=== PATIENT | female | born 1990 | race Caucasian/White ===

== ENCOUNTER 2024-06-03 17:31 | Emergency (ER) | payer MEDICAID, SELFPAY ==
[2024-06-03 17:31] VITALS: BMI 35.2
[2024-06-03 18:27] VITALS: BP 123/79; PULSE 77; RESP 19; TEMP 37.2; O2SAT 98
--- NOTE | 2024-06-03 18:53 | EDNOTE_ITS ---
Upper Extremity Injury RME/HPI General Chief Complaint: Hand/Wrist Problems Stated Complaint: CUT TO LEFT THUMB TODAY AT 1700 Time Seen by Provider: 06/03/24 17:37 Source: patient Arrival date/time: 06/03/24 17:31 33-year-old female presents emergency department complaining of laceration to the left thumb that occurred earlier today. Patient reports injury occurred while prepping dinner. Patient reports is up-to-date with tetanus vaccine with last tetanus shot given 2 years ago. Mode of arrival: ambulatory Limitations: no limitations Related Data Home Medications ?Medication ?Instructions ?Recorded ?Confirmed metformin 500 mg tablet 500 mg PO QAM 10/15/20 01/05/22 metoprolol succinate 25 mg 25 mg PO QDAY 10/15/20 01/06/22 tablet,extended release 24 hr omeprazole 20 mg capsule,delayed 20 mg PO QDAY 10/15/20 01/05/22 release sertraline 50 mg tablet 50 mg PO QDAY 10/15/20 01/05/22 cetirizine 10 mg tablet 10 mg PO QDAY 09/13/21 01/05/22 metformin 500 mg tablet 250 mg PO HS 09/13/21 01/05/22 Previous Rx's ?Medication ?Instructions ?Recorded diphenhydramine HCl 25 mg capsule 25 mg PO Q8H PRN allergic symptoms 11/01/21 (Benadryl) #30 caps cyclobenzaprine 10 mg tablet 10 mg PO TID #14 tabs 05/17/23 cyclobenzaprine 10 mg tablet 10 mg PO TID PRN muscle spasm #30 10/29/23 tabs ondansetron 4 mg disintegrating 4 mg PO Q8H PRN nausea and 11/25/23 tablet vomiting #30 tabs Allergies Allergy/AdvReac Type Severity Reaction Status Date / Time morphine AdvReac Severe HEARTBURN, Verified 06/03/24 17:33 CHEST PAIN Review of Systems Review of Systems Systems Reviewed: All systems reviewed, normal except as documented Constitutional Constitutional: Reports system reviewed and no additional complaints, except as documented, Denies body ache(s), Denies chills and Denies fever(s) Eyes Eyes: Reports system reviewed and no additional complaints, except as documented and Denies change in vision ENT Ears, Nose, Mouth, and Throat: Reports system reviewed and no additional complaints, except as documented, Denies disequilibrium, Denies dizziness, Denies sore throat and Denies vertigo Cardiovascular Cardiovascular: Reports system reviewed and no additional complaints, except as documented, Denies chest pain and Denies dyspnea Respiratory Respiratory: Reports system reviewed and no additional complaints, except as documented, Denies chest congestion, Denies cough and Denies dyspnea Gastrointestinal Gastrointestinal: Reports system reviewed and no additional complaints, except as documented, Denies abdominal pain, Denies nausea and Denies vomiting Musculoskeletal Musculoskeletal: Reports system reviewed and no additional complaints, except as documented, Denies abnormal gait and Denies arthralgias Integumentary/Breasts Skin/Breast: Reports system reviewed and no additional complaints, except as documented, Denies erythema, Denies rash and Reports wounds Neurologic Neurologic: Reports system reviewed and no additional complaints, except as documented, Denies abnormal gait, Denies disequilibrium, Denies dizziness and Denies vertigo Past Medical History Past Medical History NEUROLOGIC: Negative Neurological Disorders, Cerebrovascular Accident, Transient Ischemic Attacks (TIA), Dementia, Parkinson's Disease, Brain Tumor, Meningitis, Seizures, Epilepsy, Multiple Sclerosis, Cerebral Palsy, Amyotrophic Lateral Sclerosis (ALS/Ofelia Gehrig's), Guillain-Holladay Syndrome, Spina Bifida, Paralysis, Peripheral Neuropathy, Thomas's Palsy, Subdural Hematoma, Migraine, Head Trauma, Spinal Cord Injury or Traumatic Brain Injury CARDIAC: Positive Atrial Fibrillation and Hypertension; Negative Cardiac Disorders, Myocardial Infarction, Cardiac Arrhythmia, Angina, Heart Murmur, Coronary Artery Disease, Atherosclerotic Heart Disease, Peripheral Vascular Disease, Hypercholesterolemia, Aneurysm, Congestive Heart Failure, Congenital Heart Disease, Rheumatic Fever, Cardiomyopathy, Edema, Pericarditis, Cellulitis, Deep Vein Thrombosis, Hypotension or Varicose Veins RESPIRATORY: Positive Sleep Apnea; Negative Chronic Obstructive Pulmonary Disease (COPD), Asthma, Bronchitis, Emphysema, Pneumonia, Pulmonary Fibrosis, Cystic Fibrosis, Tuberculosis, Pulmonary Embolism or Pulmonary Edema GASTROINTESTINAL: Positive Gastrointestinal Disorders and Gastroesophageal Reflux Disease; Negative Hepatitis or Colorectal Cancer GENITOURINARY: Negative Genitourinary Disorders, Renal Disease, Kidney Stones, Polycystic Kidney Disease, Neurogenic Bladder, Inguinal Hernia, Dialysis, Prostate Cancer or Benign Prostatic Hyperplasia REPRODUCTIVE: Positive Previous Pregnancies; Negative Breast Cancer, Endometriosis, Genital Herpes, Gonorrhea, Pelvic Inflammatory Disease, Syphilis, Testicular Cancer or Uterine Prolapse MUSCULOSKELETAL: Negative Musculoskeletal Disorders, Muscular Dystrophy, Myasthenia Gravis, Marfan's Syndrome, Bone Cancer, Arthritis, Rheumatoid Arthritis, Osteoporosis, Degenerative Disk Disease, Gout, Scoliosis, Carpal Tunnel Syndrome, Fibromyalgia, Fractures, Degenerative Joint Disease, Osteomyelitis or Poliovirus ENT: Negative Cataracts, Glaucoma, Blind, Macular Degeneration, Ear Infection, Deafness, Head Trauma or Eye Prosthesis ENDOCRINE: Positive Endocrine Disorders and Diabetes Mellitus Type 2; Negative Diabetes Mellitus Type 1, Hypoglycemia, [place] Gorge's Syndrome, Ish's Disease, Hyperthyroidism, Hypothyroidism, Parathyroid Disease, Pituitary Disease, Systemic Lupus Erythematosus, Syndrome of Inappropriate Antidiuretic Hormone (SIADH), Adrenal Disease or Graves' Disease HEMATOLOGIC: Negative Blood Disorders, Anemia, Leukemia, Hemophilia, Sickle Cell Disease or Clotting Problems PSYCHO/SOCIAL: Positive Depression and Anxiety; Negative Psychiatric Problems, Schizophrenia, Recreational Drug Use, Bipolar Disorder, Behavior Problems, Self-Mutilation, Attention Deficit Disorder, Attention Deficit Hyperactivity Disorder, Depression, Post Traumatic Stress Disorder or Eating Disorder OTHER HISTORY: Negative Hospitalization, Autoimmune Disease, Down Syndrome, Autism, Developmental Delay, Shingles, Falls, Blood Transfusions, Anesthesia Reactions, Organ Transplant, Chemotherapy, Radiation Therapy, Hyperbaric Therapy, MRSA, VRSA, Vancomycin-Resistant Enterococci, Human Immunodeficiency Virus (HIV), Chicken Pox, Measles, Mumps, Rubella (Gibraltarian Measles), Pertussis, Clostridium Difficile, Breast Cancer, Cervical Cancer, Colorectal Cancer, Lung Cancer, Ovarian Cancer, Prostate Cancer or Testicular Cancer Family History FAMILY HISTORY: Positive Family Cardiac Disorders; Negative Family Psychiatric Problems, Family Respiratory Disorders, Family Gastrointestinal Problems, Family Cancer, Family Surgery or Family Anesthesia Reaction Surgical History SURGICAL: Positive Tonsillectomy; Negative Cardiac Surgery, Open Heart Surgery, Coronary Artery Bypass Graft, Valve Replacement, Vascular Surgery, Coronary Stent, Cardiac Catheterization, Pacemaker, Angiogram, Auto Implanted Cardiovert Defib, Carotid Endarterectomy, Endocrine Surgery, Ear Surgery, Tympanostomy Tube, Eye Surgery, Nose Surgery, Oral Surgery, Adenoidectomy, Cochlear Implant, Corneal Transplant, Throat Surgery, Abdominal Surgery, Tracheostomy, Gastric Bypass Surgery, Gastrostomy, Bowel Surgery, Nephrectomy, Transurethral Resection, Joint Replacement, Amputation, Open Reduction Internal Fixation, Arthroscopy, Neurologic Surgery, Brain Shunt, Mastectomy, Lumpectomy, Hysterectomy, Tubal Ligation, Section, Vasectomy or Organ Transplant Social History SMOKING STATUS: Heavy (> 1 pack/day) SUBSTANCE USE: does not use ED Exam General Limitations: Present no limitations General appearance: Present alert and in no apparent distress Head Head exam: Present atraumatic Eye Eye exam: Present normal appearance, PERRL and EOMI ENT ENT exam: Present normal exam, normal oropharynx and mucous membranes moist Neck Neck exam: Present normal inspection, full ROM and trachea midline Chest Chest inspection: Present normal inspection and symmetric chest wall rise Respiratory Respiratory exam: Present normal lung sounds bilaterally Cardiovascular Cardiovascular exam: Present regular rate, normal rhythm and normal heart sounds Abdominal Exam Abdominal exam: Present soft and normal bowel sounds Extremities Exam Extremities exam: Present normal inspection and full ROM Expanded Upper Extremity Exam Hand L/R back image: 2 1. 1 cm laceration superficial no active bleeding no suture required approximated with Dermabond Back Exam Back exam: Present normal inspection and full ROM Neurological Exam Neurological exam: Present alert, oriented X3 and CN II-XII intact Psychiatric Psychiatric exam: Present normal affect and normal mood Skin Skin exam: Present warm, dry, intact and normal color Course Quality Measures none Vital Signs Vital signs: Vital Signs Temperature 98.9 F 06/03/24 18:27 Pulse Rate 77 06/03/24 18:27 Respiratory Rate 19 06/03/24 18:27 Blood Pressure 123/79 06/03/24 18:27 Pulse Oximetry (%) 98 06/03/24 18:27 Oxygen Delivery Method Room Air 06/03/24 18:27 98% room air within normal limits Extremity Injury MDM Narrative MDM Narrative:: 33-year-old female presents emergency department complaining of laceration to the left thumb that occurred earlier today. Patient reports injury occurred while prepping dinner. Patient reports is up-to-date with tetanus vaccine with last tetanus shot given 2 years ago. With normal saline. 1 cm laceration left thumb superficial no active bleeding does not require suture placed Dermabond for approximation. Affected thumb neurovascularly intact with full active range of motion. Patient data External records reviewed:: [facility] previous records Clinical information provided by:: patient Social determinants that could affect healthcare access:: none Patient has the following chronic illnesses:: See chart How is presenting disease/condition affected by chronic disease/condition?: u neffected by Evaluation data The following diagnostics were reviewed and interpreted by me:: other (specify) (None) Lab and/or radiology exams considered but not ordered:: None Interpretation Summary: None Medications / Prescriptions Medications or Prescriptions considered but not ordered:: None Medication administrations:: None Consultations Consultation(s) initiated? (list below): No Diagnosis Upper Extremity Injury Differential Diagnosis: finger sprain Most likely diagnosis given after review of the tests above:: Laceration of left thumb Admission Indicated Admission indicated?: not indicated Admission Request Was there a request for admission?: No Disposition Plan Disposition Plan: Discharge Discharge Attestation Discharge Attestation: The patient and all family members were given an opportunity to ask questions and understood the discharge instructions. Discharge instructions specifically effects, indications for sooner follow up or return to the emergency department, and the expected course of current diagnosis. Patient condition: Stable Discharge Plan Plan Patient Disposition: HOME (Self Care) Disposition Comment: Stable Prescriptions/Referrals Prescriptions/Med Rec: No Action metformin 500 mg Tablet 250 mg PO HS cetirizine 10 mg tablet 10 mg PO QDAY Patient Comments: TAKE 1 TABLET BY MOUTH EVERY DAY metformin 500 mg tablet 500 mg PO QAM Patient Comments: TAKE 1 TABLET BY MOUTH EVERY DAY WITH A MEAL omeprazole 20 mg capsule,delayed release(DR/EC) 20 mg PO QDAY Patient Comments: TAKE 1 CAPSULE BY MOUTH ONCE EVERY MORNING DAILY 30 MINUTES BEFORE FOR 30N DAYS metoprolol succinate 25 mg tablet extended release 24 hr 25 mg PO QDAY sertraline 50 mg tablet 50 mg PO QDAY Patient Comments: TAKE 1 TABLET BY MOUTH EVERY DAY diphenhydramine HCl [Benadryl] 25 mg capsule 25 mg PO Q8H PRN (Reason: allergic symptoms) Qty: 30 0RF Hold Instructions: Resume on 01/07/22. cyclobenzaprine 10 mg tablet 10 mg PO TID Qty: 14 0RF cyclobenzaprine 10 mg tablet 10 mg PO TID PRN (Reason: muscle spasm) Qty: 30 0RF ondansetron 4 mg tablet,disintegrating 4 mg PO Q8H PRN (Reason: nausea and vomiting) Qty: 30 0RF Referrals: Stephan Eden MD [Primary Care Provider] - In 1 week Problem List Clinical Impression: Laceration of left thumb Patient/Caregiver Discharge Instructions Discharge Activity: activity as tolerated Education Materials: ED Laceration, Extremity: Skin Glue Additional Instructions: Monitor for any signs of infection. Keep laceration clean dry and intact. Follow-up with primary care provider within 1 week. Return to emergency department for any worsening symptoms or as needed. Print Language: Cuban Stand Alone Forms: Gema Award Info., Patient Portal Info Letter PA/[facility] Supervising Physician [facility] Supervising Physician: Dr. Feldman
== END 2024-06-03 19:23 | disposition home or self-care (01) ==
PROVIDERS: Emergency Provider Emergency Medicine; PCP Family Medicine
DX: S61.012A Laceration without foreign body of left thumb without damage to nail, initial encounter (principal); W45.8XXA Other foreign body or object entering through skin, initial encounter
CPT/HCPCS: 12001; 99283

== ENCOUNTER 2024-06-05 07:22 | Emergency (ER) | payer MEDICAID, SELFPAY ==
[2024-06-05 07:31] VITALS: BP 128/82; PULSE 93; RESP 18; TEMP 36.4; O2SAT 100; BMI 35.2
--- NOTE | 2024-06-05 07:38 | PD.EDRME ---
Rapid Medical Screening Exam RME Arrival date/time: 06/05/24 07:22 33-year-old female presents emergency department today complains of nausea vomiting and abdominal pain which began 2 hours ago Chief Complaint: Nausea/Vomiting/Diarrhea Time Seen by Provider: 06/05/24 07:25 Vital signs: Vital Signs Temperature 97.6 F 06/05/24 07:31 Pulse Rate 93 06/05/24 07:31 Respiratory Rate 18 06/05/24 07:31 Blood Pressure 128/82 06/05/24 07:31 Pulse Oximetry (%) 100 06/05/24 07:31 Oxygen Delivery Method Room Air 06/05/24 07:31
[2024-06-05] MEDS: METOCLOPRAMIDE INJ 5 MG/ML VIAL 2 ML 10 MG IM (07:46)
[2024-06-05] MEDS: ONDANSETRON ODT 4 MG TABRAP PO (07:46)
[2024-06-05 08:09] LABS: Collection Type, Urine Clean Catch
[2024-06-05 08:31] LABS: Bacteria,Urine Rare; Bilirubin,Urine Negative (Negative); Blood,Urine Trace (Negative); Clarity,Urine Turbid (Clear/Hazy); Color,Urine Yellow (Lt Yel-Yel); Culture Indicated,Urine Contaminated; Glucose, Urine Negative (Negative); Ketones,Urine Trace (Negative); Leukocyte Esterase,Urine Positive (Negative); Nitrite,Urine Negative (Negative); PH,Urine 5.5 (5.0-7.0); Protein,Urine 1+ (Neg - Trace); RBC,Urine 11 /hpf (0-3); Specific Gravity,Urine 1.032 (1.001-1.035); Squamous Epithelial Cell,Urine 25 /hpf (0-5); Urobilinogen,Urine Negative mg/dL (0.0-1.0); WBC,Urine 42 /hpf (0-5)
[2024-06-05 08:42] LABS: Amphetamine/Methamp Scrn,U Negative (Negative); Barbiturate Screen,Urine Negative (Negative); Benzodiazepines Screen,Urine Negative (Negative); Benzoylecgonine Screen, Ur Negative (Negative); Fentanyl Screen,Urine Negative (Negative); Opiate Screen,Urine Negative (Negative); THC Screen,Urine Positive (Negative)
--- NOTE | 2024-06-05 09:55 | EDNOTE_ITS ---
Nausea/Vomit./Diarrhea-RME/HPI General Chief complaint: Nausea/Vomiting/Diarrhea Stated complaint: nausea/vomiting/diarrhea since 0500 today Time Seen by Provider: 06/05/24 07:25 Arrival date/time: 06/05/24 07:22 33-year-old female presents emergency department today complains of nausea vomiting and abdominal pain which began 2 hours ago patient reports he is taking Trulicity 2 days ago and believes it may be the cause of her symptoms Limitations: no limitations RME / HPI RME / HPI Narrative: 06/05/24 07:22 33-year-old female presents emergency department today complains of nausea vomiting and abdominal pain which began 2 hours ago Related Data Home Medications ?Medication ?Instructions ?Recorded ?Confirmed metformin 500 mg tablet 500 mg PO QAM 10/15/20 01/05/22 metoprolol succinate 25 mg 25 mg PO QDAY 10/15/20 01/06/22 tablet,extended release 24 hr omeprazole 20 mg capsule,delayed 20 mg PO QDAY 10/15/20 01/05/22 release sertraline 50 mg tablet 50 mg PO QDAY 10/15/20 01/05/22 cetirizine 10 mg tablet 10 mg PO QDAY 09/13/21 01/05/22 metformin 500 mg tablet 250 mg PO HS 09/13/21 01/05/22 Previous Rx's ?Medication ?Instructions ?Recorded diphenhydramine HCl 25 mg capsule 25 mg PO Q8H PRN allergic symptoms 11/01/21 (Benadryl) #30 caps cyclobenzaprine 10 mg tablet 10 mg PO TID #14 tabs 05/17/23 cyclobenzaprine 10 mg tablet 10 mg PO TID PRN muscle spasm #30 10/29/23 tabs ondansetron 4 mg disintegrating 4 mg PO Q8H PRN nausea and 11/25/23 tablet vomiting #30 tabs ibuprofen 600 mg tablet 600 mg PO Q6H #30 tabs 06/05/24 loperamide 2 mg capsule (Imodium 2 mg PO Q6H PRN loose stool #14 06/05/24 A-D) caps metoclopramide HCl 10 mg tablet 10 mg PO Q6H PRN nausea and 06/05/24 (Reglan) vomiting #30 tabs Allergies Allergy/AdvReac Type Severity Reaction Status Date / Time morphine AdvReac Severe HEARTBURN, Verified 06/05/24 07:24 CHEST PAIN Review of Systems Review of Systems Systems Reviewed: All systems reviewed, normal except as documented Constitutional Constitutional: Reports system reviewed and no additional complaints, except as documented, Denies fever(s) and Denies headache(s) Eyes Eyes: Reports system reviewed and no additional complaints, except as documented and Denies blurry vision ENT Ears, Nose, Mouth, and Throat: Reports system reviewed and no additional complaints, except as documented, Denies headache(s), Denies nasal congestion and Denies nasal discharge Cardiovascular Cardiovascular: Reports system reviewed and no additional complaints, except as documented, Denies chest pain and Denies dyspnea Respiratory Respiratory: Reports system reviewed and no additional complaints, except as documented, Denies chest congestion, Denies cough and Denies dyspnea Gastrointestinal Gastrointestinal: Reports system reviewed and no additional complaints, except as documented, Reports abdominal pain, Reports loose stools and Reports vomiting Integumentary/Breasts Skin/Breast: Reports system reviewed and no additional complaints, except as documented and Denies rash Neurologic Neurologic: Reports system reviewed and no additional complaints, except as documented, Reports as per HPI and Denies headache(s) Past Medical History Past Medical History NEUROLOGIC: Negative Neurological Disorders CARDIAC: Negative Cardiac Disorders ED Exam General Limitations: Present no limitations General appearance: Present alert and in no apparent distress Head Head exam: Present atraumatic and normocephalic Eye Eye exam: Present normal appearance, PERRL and EOMI; Absent conjunctival inject ion ENT ENT exam: Present normal exam, normal oropharynx and mucous membranes moist Neck Neck exam: Present normal inspection, full ROM and trachea midline Chest Chest inspection: Present normal inspection and symmetric chest wall rise Respiratory Respiratory exam: Present normal lung sounds bilaterally; Absent respiratory distress Cardiovascular Cardiovascular exam: Present regular rate, normal rhythm and normal heart sounds Abdominal Exam Abdominal exam: Present soft and normal bowel sounds; Absent distention, tenderness, guarding, rebound, rigidity, Ramirez's sign or tenderness at McBurney's Point Abdominal tenderness: Absent RUQ or RLQ Extremities Exam Extremities exam: Present normal inspection and full ROM Back Exam Back exam: Present normal inspection and full ROM Neurological Exam Neurological exam: Present alert, oriented X3, CN II-XII intact, normal gait and reflexes normal; Absent motor sensory deficit Psychiatric Psychiatric exam: Present normal affect and normal mood Skin Skin exam: Present warm, dry, intact and normal color; Absent rash Course Quality Measures none Orders Category Date Time Status Bedside Influenza A&B Antigen Test NOW Care 06/05/24 07:38 Completed Drug Screen,Urine Stat Lab 06/05/24 07:56 Completed UA, C/S IF [Urinalysis, C/S if Indicated] Stat Lab 06/05/24 07:56 Completed Metoclopramide Inj [Reglan Inj] Med 06/05/24 07:37 Discontinued 10 mg IM X1 ONE Ondansetron Odt [Zofran Odt] Med 06/05/24 07:37 Discontinued 4 mg PO X1 ONE Vital Signs Vital signs: Vital Signs Temperature 97.6 F 06/05/24 07:31 Pulse Rate 93 06/05/24 07:31 Respiratory Rate 18 06/05/24 07:31 Blood Pressure 128/82 06/05/24 07:31 Pulse Oximetry (%) 100 06/05/24 07:31 Oxygen Delivery Method Room Air 06/05/24 07:31 O2 saturation 100% room air wnl Nausea/Vomiting/Diarrhea MDM Narrative MDM Narrative:: 33-year-old female presents emergency department today complains of nausea vomiting and abdominal pain which began 2 hours ago patient reports he is taking Trulicity 2 days ago and believes it may be the cause of her symptoms On exam patient does not appear ill or toxic patient does not appear in acute distress Patient given Reglan here in the emergency department patient reports her symptoms have completely resolved patient reports having 2 episodes of diarrhea here in the emergency department Lab work ordered there was delay over 2 hours for lab work patient reports that she feels better would like to go home lab work is canceled as she reports all symptoms have resolved I explained to the patient if she has any new symptoms or new concerns to return immediately for further evaluation Patient data External records reviewed:: [facility] previous records Clinical information provided by:: patient Social determinants that could affect healthcare access:: none Patient has the following chronic illnesses:: See history How is presenting disease/condition affected by chronic disease/condition?: caused by Evaluation data The following diagnostics were reviewed and interpreted by me:: other (specify) (N/A) Lab and/or radiology exams considered but not ordered:: Ordered Interpretation Summary: N/A Medications / Prescriptions Medications / Prescriptions considered but not ordered:: Given Medication administrations:: Medication Administration History Discontinued Medications Metoclopramide HCl (Metoclopramide Inj 5 Mg/Ml Vial 2 Ml) 10 mg IM X1 ONE; Protocol Stop: 06/05/24 07:38 Last Admin: 06/05/24 07:46 Dose: 10 mg Documented By: OSVALDO Ondansetron HCl (Ondansetron Odt 4 Mg Tabrap) 4 mg PO X1 ONE; Protocol Stop: 06/05/24 07:38 Last Admin: 06/05/24 07:46 Dose: 4 mg Documented By: OSVALDO Given Consultations Consultation(s) initiated? (list below): No Diagnosis Nausea Differential Diagnosis: traveler's diarrhea, food poisoning and dehydration Most likely diagnosis given after review of the tests above:: Diarrhea Admission Indicated Admission indicated?: not indicated Admission Request Was there a request for admission?: No Disposition Plan Disposition Plan: Discharge Discharge Attestation Discharge Attestation: The patient and all family members were given an opportunity to ask questions and understood the discharge instructions. Discharge instructions specifically effects, indications for sooner follow up or return to the emergency department, and the expected course of current diagnosis. Patient condition: Stable Discharge Plan Plan Patient Disposition: HOME (Self Care) Disposition Comment: Stable Prescriptions/Referrals Prescriptions/Med Rec: New loperamide [Imodium A-D] 2 mg capsule 2 mg PO Q6H PRN (Reason: loose stool) Qty: 14 0RF ibuprofen 600 mg tablet 600 mg PO Q6H Qty: 30 0RF metoclopramide HCl [Reglan] 10 mg tablet 10 mg PO Q6H PRN (Reason: nausea and vomiting) Qty: 30 0RF No Action metformin 500 mg Tablet 250 mg PO HS cetirizine 10 mg tablet 10 mg PO QDAY Patient Comments: TAKE 1 TABLET BY MOUTH EVERY DAY metformin 500 mg tablet 500 mg PO QAM Patient Comments: TAKE 1 TABLET BY MOUTH EVERY DAY WITH A MEAL omeprazole 20 mg capsule,delayed release(DR/EC) 20 mg PO QDAY Patient Comments: TAKE 1 CAPSULE BY MOUTH ONCE EVERY MORNING DAILY 30 MINUTES BEFORE FOR 30N DAYS metoprolol succinate 25 mg tablet extended release 24 hr 25 mg PO QDAY sertraline 50 mg tablet 50 mg PO QDAY Patient Comments: TAKE 1 TABLET BY MOUTH EVERY DAY diphenhydramine HCl [Benadryl] 25 mg capsule 25 mg PO Q8H PRN (Reason: allergic symptoms) Qty: 30 0RF Hold Instructions: Resume on 01/07/22. cyclobenzaprine 10 mg tablet 10 mg PO TID Qty: 14 0RF cyclobenzaprine 10 mg tablet 10 mg PO TID PRN (Reason: muscle spasm) Qty: 30 0RF ondansetron 4 mg tablet,disintegrating 4 mg PO Q8H PRN (Reason: nausea and vomiting) Qty: 30 0RF Referrals: Stephan Eden MD [Primary Care Provider] - In 1 week Problem List Clinical Impression: Nausea, vomiting and diarrhea Patient/Caregiver Discharge Instructions Education Materials: Treating Diarrhea Additional Instructions: Please follow up with your primary care doctor in the next 24-48hrs for any worsening symptoms return here immediately Print Language: Russian Stand Alone Forms: [employer] Award Info., Work/School Release, Patient Portal Info Letter PA/CLIENT SUCCESS DIRECTOR Supervising Physician PA/[facility] Supervising Physician: Dr lara
== END 2024-06-05 10:04 | disposition home or self-care (01) ==
PROVIDERS: Nurse Practitioner Primary Care; Emergency Provider Emergency Medicine; PCP Family Medicine
DX: R11.2 Nausea with vomiting, unspecified (principal); R19.7 Diarrhea, unspecified
CPT/HCPCS: 80053; 80307; 81001; 83036; 83690; 84703; 85025; 87400; 96372; 99283; J2765; Q0162

== ENCOUNTER 2024-06-05 22:52 | Emergency (ER) | payer MEDICAID, SELFPAY ==
[2024-06-05 23:26] VITALS: BP 122/86; PULSE 89; RESP 18; TEMP 36.9; O2SAT 99; BMI 35.2
--- NOTE | 2024-06-05 23:31 | EDNOTE_ITS ---
ED Abdominal Pain RME/HPI General Chief Complaint: Abdominal Pain Stated complaint: abdominal pain/here earlier worsening pain Time seen by provider: 06/05/24 23:33 Arrival date/time: 06/05/24 22:52 33-year-old female with a history of type 2 diabetes, hypertension presents to the emergency room with a chief complaint of epigastric abdominal pain nausea and diarrhea x 2 days. Patient states her symptoms have began after starting the medication Trulicity 2 days ago. Source: patient Mode of arrival: ambulatory Limitations: no limitations Related Data Home Medications ?Medication ?Instructions ?Recorded ?Confirmed metformin 500 mg tablet 500 mg PO QAM 10/15/20 01/05/22 metoprolol succinate 25 mg 25 mg PO QDAY 10/15/20 01/06/22 tablet,extended release 24 hr omeprazole 20 mg capsule,delayed 20 mg PO QDAY 10/15/20 01/05/22 release sertraline 50 mg tablet 50 mg PO QDAY 10/15/20 01/05/22 cetirizine 10 mg tablet 10 mg PO QDAY 09/13/21 01/05/22 metformin 500 mg tablet 250 mg PO HS 09/13/21 01/05/22 Previous Rx's ?Medication ?Instructions ?Recorded diphenhydramine HCl 25 mg capsule 25 mg PO Q8H PRN allergic symptoms 11/01/21 (Benadryl) #30 caps cyclobenzaprine 10 mg tablet 10 mg PO TID #14 tabs 05/17/23 cyclobenzaprine 10 mg tablet 10 mg PO TID PRN muscle spasm #30 10/29/23 tabs ondansetron 4 mg disintegrating 4 mg PO Q8H PRN nausea and 11/25/23 tablet vomiting #30 tabs ibuprofen 600 mg tablet 600 mg PO Q6H #30 tabs 06/05/24 loperamide 2 mg capsule (Imodium 2 mg PO Q6H PRN loose stool #14 06/05/24 A-D) caps metoclopramide HCl 10 mg tablet 10 mg PO Q6H PRN nausea and 06/05/24 (Reglan) vomiting #30 tabs nitrofurantoin 100 mg PO Q12H 5 days #10 caps 06/06/24 monohydrate/macrocrystals 100 mg capsule (Macrobid) Allergies Allergy/AdvReac Type Severity Reaction Status Date / Time morphine AdvReac Severe HEARTBURN, Verified 06/05/24 07:24 CHEST PAIN Review of Systems Review of Systems Systems Reviewed: All systems reviewed, normal except as documented Constitutional Constitutional: Reports system reviewed and no additional complaints, except as documented, Denies fatigue, Denies fever(s), Denies headache(s) and Denies weakness Eyes Eyes: Reports system reviewed and no additional complaints, except as documented, Denies blurry vision and Denies change in vision ENT Ears, Nose, Mouth, and Throat: Reports system reviewed and no additional complaints, except as documented, Denies otalgia, Denies headache(s), Denies nasal congestion, Denies throat swelling and Denies vertigo Cardiovascular Cardiovascular: Reports system reviewed and no additional complaints, except as documented, Denies chest pain, Denies dyspnea and Denies dyspnea on exertion Respiratory Respiratory: Reports system reviewed and no additional complaints, except as documented, Denies chest congestion, Denies cough, Denies dyspnea, Denies dyspnea on exertion and Denies wheezing Gastrointestinal Gastrointestinal: Reports system reviewed and no additional complaints, except as documented, Reports abdominal pain, Reports cramping, Reports nausea and Reports vomiting Genitourinary Genitourinary: Reports system reviewed and no additional complaints, except as documented Musculoskeletal Musculoskeletal: Reports system reviewed and no additional complaints, except as documented and Denies back pain Integumentary/Breasts Skin/Breast: Reports system reviewed and no additional complaints, except as documented and Denies wounds Neurologic Neurologic: Reports system reviewed and no additional complaints, except as documented, Denies confusion, Denies headache(s), Denies lack of coordination, Denies vertigo and Denies weakness Psychiatric Psychiatric: Reports system reviewed and no additional complaints, except as documented, Denies anxiety, Denies confusion, Denies depression, Denies paranoia, Denies suicidal ideation and Denies tactile hallucinations Endocrine Endocrine: Reports system reviewed and no additional complaints, except as documented and Denies fatigue Hematologic/Lymphatic Hematologic/Lymphatic: Reports system reviewed and no additional complaints, except as documented and Denies lymphadenopathy Allergic/Immunologic Allergic/Immunologic: Reports system reviewed and no additional complaints, except as documented, Denies throat swelling, Denies urticaria and Denies w heezing Past Medical History Past Medical History NEUROLOGIC: Negative Neurological Disorders, Cerebrovascular Accident, Transient Ischemic Attacks (TIA), Dementia, Parkinson's Disease, Brain Tumor, Meningitis, Seizures, Epilepsy, Multiple Sclerosis, Cerebral Palsy, Amyotrophic Lateral Sclerosis (ALS/Ofelia Gehrig's), Guillain-[place] Syndrome, Spina Bifida, Paralysis, Peripheral Neuropathy, Thomas's Palsy, Subdural Hematoma, Migraine, Head Trauma, Spinal Cord Injury or Traumatic Brain Injury CARDIAC: Positive Atrial Fibrillation and Hypertension; Negative Cardiac Disorders, Myocardial Infarction, Cardiac Arrhythmia, Angina, Heart Murmur, Coronary Artery Disease, Atherosclerotic Heart Disease, Peripheral Vascular Disease, Hypercholesterolemia, Aneurysm, Congestive Heart Failure, Congenital Heart Disease, Rheumatic Fever, Cardiomyopathy, Edema, Pericarditis, Cellulitis, Deep Vein Thrombosis, Hypotension or Varicose Veins RESPIRATORY: Positive Sleep Apnea; Negative Chronic Obstructive Pulmonary Disease (COPD), Asthma, Bronchitis, Emphysema, Pneumonia, Pulmonary Fibrosis, Cystic Fibrosis, Tuberculosis, Pulmonary Embolism or Pulmonary Edema GASTROINTESTINAL: Positive Gastrointestinal Disorders and Gastroesophageal Reflux Disease; Negative Hepatitis or Colorectal Cancer GENITOURINARY: Negative Genitourinary Disorders, Renal Disease, Kidney Stones, Polycystic Kidney Disease, Neurogenic Bladder, Inguinal Hernia, Dialysis, Prostate Cancer or Benign Prostatic Hyperplasia REPRODUCTIVE: Positive Previous Pregnancies; Negative Breast Cancer, Endometriosis, Genital Herpes, Gonorrhea, Pelvic Inflammatory Disease, Syphilis, Testicular Cancer or Uterine Prolapse MUSCULOSKELETAL: Negative Musculoskeletal Disorders, Muscular Dystrophy, Myas thenia Gravis, Marfan's Syndrome, Bone Cancer, Arthritis, Rheumatoid Arthritis, Osteoporosis, Degenerative Disk Disease, Gout, Scoliosis, Carpal Tunnel Syndrome, Fibromyalgia, Fractures, Degenerative Joint Disease, Osteomyelitis or Poliovirus ENT: Negative Cataracts, Glaucoma, Blind, Macular Degeneration, Ear Infection, Deafness, Head Trauma or Eye Prosthesis ENDOCRINE: Positive Endocrine Disorders and Diabetes Mellitus Type 2; Negative Diabetes Mellitus Type 1, Hypoglycemia, Juan David's Syndrome, [place]'s Disease, Hyperthyroidism, Hypothyroidism, Parathyroid Disease, Pituitary Disease, Systemic Lupus Erythematosus, Syndrome of Inappropriate Antidiuretic Hormone (SIADH), Adrenal Disease or Graves' Disease HEMATOLOGIC: Negative Blood Disorders, Anemia, Leukemia, Hemophilia, Sickle Cell Disease or Clotting Problems PSYCHO/SOCIAL: Positive Depression and Anxiety; Negative Psychiatric Problems, Schizophrenia, Recreational Drug Use, Bipolar Disorder, Behavior Problems, Self-Mutilation, Attention Deficit Disorder, Attention Deficit Hyperactivity Disorder, Depression, Post Traumatic Stress Disorder or Eating Disorder OTHER HISTORY: Negative Hospitalization, Autoimmune Disease, Down Syndrome, Autism, Developmental Delay, Shingles, Falls, Blood Transfusions, Anesthesia Reactions, Organ Transplant, Chemotherapy, Radiation Therapy, Hyperbaric Therapy, MRSA, VRSA, Vancomycin-Resistant Enterococci, Human Immunodeficiency Virus (HIV), Chicken Pox, Measles, Mumps, Rubella (Yor[place] Measles), Pertussis, Clostridium Difficile, Breast Cancer, Cervical Cancer, Colorectal Cancer, Lung Cancer, Ovarian Cancer, Prostate Cancer or Testicular Cancer Family History FAMILY HISTORY: Positive Family Cardiac Disorders; Negative Family Psychiatric Problems, Family Respiratory Disorders, Family Gastrointestinal Problems, Family Cancer, Family Surgery or Family Anesthesia Reaction Surgical History SURGICAL: Positive Tonsillectomy; Negative Cardiac Surgery, Open Heart Surgery, Coronary Artery Bypass Graft, Valve Replacement, Vascular Surgery, Coronary Stent, Cardiac Catheterization, Pacemaker, Angiogram, Auto Implanted Cardiovert Defib, Carotid Endarterectomy, Endocrine Surgery, Ear Surgery, Tympanostomy Tube, Eye Surgery, Nose Surgery, Oral Surgery, Adenoidectomy, Cochlear Implant, Corneal Transplant, Throat Surgery, Abdominal Surgery, Tracheostomy, Gastric Bypass Surgery, Gastrostomy, Bowel Surgery, Nephrectomy, Transurethral Resection, Joint Replacement, Amputation, Open Reduction Internal Fixation, Arthroscopy, Neurologic Surgery, Brain Shunt, Mastectomy, Lumpectomy, Hysterectomy, Tubal Ligation, Section, Vasectomy or Organ Transplant Social History SMOKING STATUS: Former smoker SUBSTANCE USE: does not use ED Exam General Limitations: Present no limitations General appearance: Present alert and in no apparent distress Head Head exam: Present atraumatic Eye Eye exam: Present normal appearance, PERRL and EOMI ENT ENT exam: Present normal exam, normal oropharynx and mucous membranes moist Neck Neck exam: Present normal inspection, full ROM and trachea midline Chest Chest inspection: Present normal inspection and symmetric chest wall rise Respiratory Respiratory exam: Present normal lung sounds bilaterally Cardiovascular Cardiovascular exam: Present regular rate, normal rhythm and normal heart sounds Abdominal Exam Abdominal exam: Present soft, tenderness and normal bowel sounds; Absent distention, guarding, rebound or rigidity Abdominal tenderness: Present epigastrium and moderate Extremities Exam Extremities exam: Present normal inspection and full ROM Back Exam Back exam: Present normal inspection and full ROM Neurological Exam Neurological exam: Present alert, oriented X3 and CN II-XII intact Psychiatric Psychiatric exam: Present normal affect and normal mood Skin Skin exam: Present warm, dry, intact and normal color Course Quality Measures none Orders Category Date Time Status US gall bladder Stat Exams 06/06/24 00:44 Taken CBC Stat Lab 06/05/24 23:37 Completed CMP [Comprehensive Metabolic Panel] Stat Lab 06/05/24 23:37 Completed Lipase Stat Lab 06/05/24 23:37 Completed UA, C/S IF [Urinalysis, C/S if Indicated] Stat Lab 06/05/24 00:03 Completed Ondansetron Odt [Zofran Odt] Med 06/05/24 23:30 Discontinued 4 mg PO X1 ONE Vital Signs Vital signs: Vital Signs Temperature 98.5 F 06/05/24 23:26 Pulse Rate 89 06/05/24 23:26 Respiratory Rate 18 06/05/24 23:26 Blood Pressure 122/86 H 06/05/24 23:26 Pulse Oximetry (%) 99 06/05/24 23:26 Oxygen Delivery Method Room Air 06/05/24 23:26 O2 saturation 99% within normal limits Abdominal Pain MDM MDM Narrative MDM Narrative:: 33-year-old female with a history of type 2 diabetes, hypertension presents to the emergency room with a chief complaint of epigastric abdominal pain nausea and diarrhea x 2 days. Patient states her symptoms have began after starting the medication Trulicity 2 days ago. Patient is hemodynamically stable and nontoxic-appearing. Patient has tenderness to the epigastric area patient rates today a 4 out of 10. CBC and CMP show some leukocytosis with a WBC count of 17.6. Ultrasound of the gallbladder was completed and was negative for any acute findings Urinalysis was positive for urinary tract infection antibiotics are sent to the patient's pharmacy patient was educated to pick them up and take them as indicated. Patient was educated to follow-up with her primary care provider in the next 24 to 48 hours regarding her Trulicity. Patient was educated return to the emergency room for any evidence of worsening signs or symptoms Patient data External records reviewed:: [facility] previous records Clinical information provided by:: patient Social determinants that could affect healthcare access:: none Patient has the following chronic illnesses:: No chronic illness How is presenting disease/condition affected by chronic disease/condition?: no chronic disease Evaluation data The following diagnostics were reviewed and interpreted by me:: lab results and radiology exam(s) Lab and/or radiology exams considered but not ordered:: Labs and radiology exams considered and ordered Interpretation Summary: Ultrasound gallbladder-no gallstones Medications / Prescriptions Medications or Prescriptions considered but not ordered:: Medication given Medication administrations:: Medication Administration History Discontinued Medications Ondansetron HCl (Ondansetron Odt 4 Mg Tabrap) 4 mg PO X1 ONE; Protocol Stop: 06/05/24 23:31 Medication given Consultations Consultation(s) initiated? (list below): No Diagnosis Differential diagnosis abdominal pain: abdominal pain, acute appendicitis, gastroenteritis and other (Urinary tract infection) Most likely diagnosis given after review of the tests above:: Urinary tract infection Admission Indicated Admission indicated?: not indicated Admission Request Was there a request for admission?: No Disposition Plan Disposition Plan: Discharge Discharge Attestation Discharge Attestation: The patient and all family members were given an opportunity to ask questions and understood the discharge instructions. Discharge instructions specifically effects, indications for sooner follow up or return to the emergency department, and the expected course of current diagnosis. Patient condition: Stable Discharge Plan Plan Patient Disposition: HOME (Self Care) Disposition Comment: Stable Prescriptions/Referrals Prescriptions/Med Rec: New nitrofurantoin monohyd/m-cryst [Macrobid] 100 mg capsule 100 mg PO Q12H 5 Days Qty: 10 0RF Rx Instructions: must administer with a meal/food No Action metformin 500 mg Tablet 250 mg PO HS cetirizine 10 mg tablet 10 mg PO QDAY Patient Comments: TAKE 1 TABLET BY MOUTH EVERY DAY metformin 500 mg tablet 500 mg PO QAM Patient Comments: TAKE 1 TABLET BY MOUTH EVERY DAY WITH A MEAL omeprazole 20 mg capsule,delayed release(DR/EC) 20 mg PO QDAY Patient Comments: TAKE 1 CAPSULE BY MOUTH ONCE EVERY MORNING DAILY 30 MINUTES BEFORE FOR 30N DAYS metoprolol succinate 25 mg tablet extended release 24 hr 25 mg PO QDAY sertraline 50 mg tablet 50 mg PO QDAY Patient Comments: TAKE 1 TABLET BY MOUTH EVERY DAY diphenhydramine HCl [Benadryl] 25 mg capsule 25 mg PO Q8H PRN (Reason: allergic symptoms) Qty: 30 0RF Hold Instructions: Resume on 01/07/22. cyclobenzaprine 10 mg tablet 10 mg PO TID Qty: 14 0RF loperamide [Imodium A-D] 2 mg capsule 2 mg PO Q6H PRN (Reason: loose stool) Qty: 14 0RF ibuprofen 600 mg tablet 600 mg PO Q6H Qty: 30 0RF metoclopramide HCl [Reglan] 10 mg tablet 10 mg PO Q6H PRN (Reason: nausea and vomiting) Qty: 30 0RF cyclobenzaprine 10 mg tablet 10 mg PO TID PRN (Reason: muscle spasm) Qty: 30 0RF ondansetron 4 mg tablet,disintegrating 4 mg PO Q8H PRN (Reason: nausea and vomiting) Qty: 30 0RF Referrals: No Primary/Family,Physician [Primary Care Provider] - In 1 week Problem List Clinical Impression: Urinary tract infection Patient/Caregiver Discharge Instructions Education Materials: ED CYSTITIS Female Adult Additional Instructions: Please follow-up with your primary care provider in the next 24 to 48 hours. Antibiotics are sent to your pharmacy please pick them up and take them as indicated. For any evidence of worsening signs or symptoms please return to the emergency room immediately Print Language: Armenian Stand Alone Forms: Gema Award Info., Patient Portal Info Letter PA/POLICE CHIEF Supervising Physician PA/XAVIER Supervising Physician: Dana
[2024-06-06 00:10] LABS: Collection Type, Urine Clean Catch
[2024-06-06 00:22] LABS: Basophils # (Auto) 0.1 Thou/mm3 (0.0-0.2); Basophils % (Auto) 0 % (0-2.5); Eosinophils # (Auto) 0.4 Thou/mm3 (0.0-0.5); Eosinophils % (Auto) 2 % (0-10); Hemoglobin 14.9 g/dL (12.0-16.0); Immature Granulocytes % (Auto) 1 % (0-0); Immature Granulocytes Auto 0.08 Thou/mm3 (0.00-0.00); Lymphocytes # (Auto) 2.2 Thou/mm3 (1.0-4.8); Lymphocytes % (Auto) 12 % (10-50); Mean Corpuscular HGB Conc 33.9 g/dl (31.0-37.0); Mean Corpuscular Hemoglobin 25.8 pg (25.0-35.0); Mean Corpuscular Volume 76 fL (80-100); Monocytes # (Auto) 0.9 Thou/mm3 (0.0-0.8); Monocytes % (Auto) 5 % (0-12); Neutrophils # (Auto) 14.1 Thou/mm3 (1.8-7.7); Neutrophils % (Auto) 80 % (37-80); Nucleated Red Blood Cell % 0 /100 WBC (0); Platelet Count 312 Thou/mm3 (140-440); RDW Standard Deviation 36.6 fL (36.4-46.3); Red Blood Count 5.78 Miln/mm3 (4.00-5.20); White Blood Count 17.6 Thou/mm3 (3.6-11.0)
[2024-06-06 00:26] LABS: Alanine Aminotransferase 12 U/L (10-49); Albumin, Serum 5.4 gm/dL (3.5-5.0); Alkaline Phosphatase 97 U/L (46-116); Anion Gap 11 (7-16); Aspartate Amino Transferase 15 U/L (0-34); BUN/Creatinine Ratio 12 Ratio (12-20); Bilirubin,Total 1.1 mg/dL (0.3-1.2); Blood Urea Nitrogen 11 mg/dL (9-23); Calcium 10.2 mg/dL (8.3-10.6); Calcium (Corrected) 10.2 mg/dL (8.5-10.1); Carbon Dioxide 26.5 mMol/L (20.0-31.0); Chloride 99 mMol/L (98-107); Creatinine (Component) 0.9 mg/dL (0.6-1.3); Estimated Creatinine Clearance 107.4 mL/min (>60); Globulin 2.7 gm/dL (2.3-3.5); Glucose 107 mg/dL (74-106); Lipase 39 U/L (12-53); Osmolality,Calculated 271 (275-295); Potassium 3.4 mMol/L (3.4-5.1); Sodium 136 mMol/L (136-145); Total Protein 8.1 gm/dL (5.7-8.2); eGFR > 60 See Note
--- NOTE | 2024-06-06 00:44 | XR_ITS ---
Examination: Abdomen sonogram, Limited Date and time of exam: June 06, 2024 0110 hours INDICATIONS: Vomiting epigastric pain beginning today Technique: Real-time lei scale transabdominal sonographic images of the upper abdomen obtained. Findings: Gallbladder sludge No gallstones Normal gallbladder wall Normal common bile duct Pancreatic head 2.2 cm Liver 17.6 cm fatty infiltration lobular contour no focal liver lesions Normal hepatopedal portal venous flow Patent IVC IMPRESSION: Negative for cholelithiasis, negative for cholecystitis Moderate hepatomegaly fatty liver suspect primary hepatocellular disease no focal liver lesions
[2024-06-06 00:46] LABS: Bacteria,Urine Rare; Bilirubin,Urine Negative (Negative); Blood,Urine Negative (Negative); Color,Urine Yellow (Lt Yel-Yel); Culture Indicated,Urine Not Indicated; Ketones,Urine Trace (Negative); Leukocyte Esterase,Urine Negative (Negative); Nitrite,Urine Negative (Negative); Protein,Urine 1+ (Neg - Trace); RBC,Urine 4 /hpf (0-3); Specific Gravity,Urine 1.028 (1.001-1.035); Squamous Epithelial Cell,Urine 3 /hpf (0-5); Urobilinogen,Urine Negative mg/dL (0.0-1.0); WBC,Urine 2 /hpf (0-5)
[2024-06-06 00:56] LABS: Clarity,Urine Hazy (Clear/Hazy); Sperm,Urine Present
[2024-06-06 01:00] LABS: Glucose, Urine Negative (Negative)
--- NOTE | 2024-06-06 01:50 | PRELIM_ITS ---
Ultrasound Abdomen. June 06, 2024 0110 hours Clinical history: ruq pain Technique: Grayscale and c olor flow images of the abdomen are provided. Hepatic and portal veins were also imaged with color fl ow images. Comparison: NoneFindings:There is fatty infiltration of the liver. Liver is top normal me asuring 17.6 cm in maximal dimension. Small amount of sludge suggested within the dependent gallblad marlo. Gallbladder wall thickness is normal measuring 2.2 mm. Common bile duct is normal caliber abdi uring 3.3 mm. There is hepatopedal flow within the portal vein. Pancreas as visualized unremarkable . Visualized IVC and right kidney are unremarkable.Impression:1. Fatty liver.2. Small amount of slud ge in the gallbladder. No evidence of acute cholecystitis. Report Electronically Signed By: Rg monreal 06/06/2024 1:50:02 AM [EST]
== END 2024-06-06 02:18 | disposition home or self-care (01) ==
PROVIDERS: Nurse Practitioner Family; Emergency Provider Emergency Medicine
DX: N39.0 Urinary tract infection, site not specified (principal); E11.9 Type 2 diabetes mellitus without complications; I10 Essential (primary) hypertension
CPT/HCPCS: 36415; 76705; 80053; 81001; 83690; 85025; 99284

== ENCOUNTER 2024-06-07 07:16 | Emergency (ER) | payer MEDICAID, SELFPAY ==
--- NOTE | 2024-06-07 07:21 | EKG_ITS ---
[facility] Test Date: 2024-06-07 Pat Name: LORRI TOBIN Department: Room: - Gender: Female Specialty Person: : 1990 Requested By: Jose Sullivan Order Number: [id number] Reading MD: Jose Sullivan Measurements Intervals [place] Rate: 94 P: 37 [place]: 144 QRS: 62 QRSD: 93 T: -31 QT: 358 QTc: 449 Interpretive Statements SINUS RHYTHM ST DEVIATION AND MODERATE T-WAVE ABNORMALITY, CONSIDER ANTEROLATERAL ISCHEMIA [-0.1+ mV T WAVE IN V3-V6] ST DEVIATION AND MODERATE T-WAVE ABNORMALITY, CONSIDER INFERIOR ISCHEMIA [-0.1+ mV T WAVE IN II/aVF] Compared to ECG 09/13/2021 12:38:26 Possible ischemia now present T-wave abnormality still present /store/S0/[id number]/ecg/[id number].pdf
[2024-06-07 08:05] VITALS: BP 131/85; PULSE 88; RESP 20; TEMP 36.8; O2SAT 97; BMI 35.2
--- NOTE | 2024-06-07 08:06 | PD.EDRME ---
Rapid Medical Screening Exam RME Arrival date/time: 06/07/24 07:16 33-year-old female presents to the emergency department with complaints of palpitations, mild chest pain that began today upon awakening. Reports recent UTI diagnosis. I have greeted and performed a focused initial assessment of this patient. Initial appropriate labs ordered at this time. A comprehensive ED assessment and evaluation of the patient and analysis of all test and completion of medical decision making process will be conducted by additional ED provider. Chief Complaint: Arrhythmia/Palpitations Time Seen by Provider: 06/07/24 07:34 Vital signs: Vital Signs Temperature 98.2 F 06/07/24 08:05 Pulse Rate 88 06/07/24 08:05 Respiratory Rate 20 06/07/24 08:05 Blood Pressure 131/85 H 06/07/24 08:05 Pulse Oximetry (%) 97 06/07/24 08:05 Oxygen Delivery Method Room Air 06/07/24 08:05
--- NOTE | 2024-06-07 08:18 | XR_ITS ---
Examination: PA lateral chest 2 views TECHNIQUE: Upright PA lateral chest 2 views Exam date and time: June 07, 2024 0835 hours Comparison October 15, 2020 INDICATIONS: Tachycardia, shortness of breath beginning 5:30 AM this morning. FINDINGS: Normal heart size Lungs are clear. The osseous structures are intact IMPRESSION: No active disease
[2024-06-07 09:07] LABS: Basophils % (Auto) 0 % (0-2.5); Eosinophils # (Auto) 0.3 Thou/mm3 (0.0-0.5); Eosinophils % (Auto) 3 % (0-10); Hematocrit 43.4 % (36.0-46.0); Hemoglobin 14.9 g/dL (12.0-16.0); Immature Granulocytes % (Auto) 0 % (0-0); Immature Granulocytes Auto 0.05 Thou/mm3 (0.00-0.00); Lymphocytes # (Auto) 1.6 Thou/mm3 (1.0-4.8); Lymphocytes % (Auto) 13 % (10-50); Mean Corpuscular HGB Conc 34.3 g/dl (31.0-37.0); Mean Corpuscular Hemoglobin 26.1 pg (25.0-35.0); Mean Corpuscular Volume 76 fL (80-100); Monocytes # (Auto) 0.7 Thou/mm3 (0.0-0.8); Monocytes % (Auto) 6 % (0-12); Neutrophils # (Auto) 9.4 Thou/mm3 (1.8-7.7); Neutrophils % (Auto) 77 % (37-80); Nucleated Red Blood Cell % 0 /100 WBC (0); Platelet Count 311 Thou/mm3 (140-440); RDW Standard Deviation 36.7 fL (36.4-46.3); White Blood Count 12.1 Thou/mm3 (3.6-11.0)
[2024-06-07 09:26] LABS: Alanine Aminotransferase 16 U/L (10-49); Albumin, Serum 5.4 gm/dL (3.5-5.0); Albumin/Globulin Ratio 1.8 (1.2-2.2); Alkaline Phosphatase 96 U/L (46-116); Anion Gap 10 (7-16); Aspartate Amino Transferase 18 U/L (0-34); BUN/Creatinine Ratio 11 Ratio (12-20); Blood Urea Nitrogen 10 mg/dL (9-23); Calcium 10.5 mg/dL (8.3-10.6); Calcium (Corrected) 10.5 mg/dL (8.5-10.1); Carbon Dioxide 27.5 mMol/L (20.0-31.0); Chloride 100 mMol/L (98-107); Creatinine (Component) 0.9 mg/dL (0.6-1.3); Estimated Creatinine Clearance 107.4 mL/min (>60); Glucose 110 mg/dL (74-106); Lipase 42 U/L (12-53); Magnesium 2.2 mg/dL (1.6-2.6); Osmolality,Calculated 273 (275-295); Potassium 3.4 mMol/L (3.4-5.1); Sodium 137 mMol/L (136-145); Total Protein 8.4 gm/dL (5.7-8.2); Troponin I < 0.002 ng/mL (0.0-0.045); eGFR > 60 See Note
[2024-06-07 09:29] LABS: INR 1.1 (0.9-1.3); Partial Thromboplastin Time 28.8 Seconds (22.0-36.0); Prothrombin Time 11.8 Seconds (9.0-12.2)
[2024-06-07 09:35] LABS: B-Type Natriuretic Peptide < 20 pg/mL (0-100)
[2024-06-07 10:55] VITALS: BP 158/81; PULSE 73; RESP 21; TEMP 37; O2SAT 98
[2024-06-07 11:00] VITALS: PULSE 94
--- NOTE | 2024-06-07 11:33 | PD.EDARRY ---
ED Arrhythmia Palp. RME/HPI General Chief Complaint: Arrhythmia/Palpitations Stated Complaint: Palpitations this morning Time Seen by Provider: 06/07/24 07:34 Arrival date/time: 06/07/24 07:16 RME / HPI RME / HPI narrative: 33-year-old female patient with significant history of anxiety, came in for evaluation regarding palpitation. Patient woke up this morning having palpitations, lasting for several minutes. Also complained of chest discomfort. Was seen here 2 days ago and was diagnosed with UTI. Patient told me that she had no symptoms of UTI she had no dysuria frequency or bladder pain. She came in because she is having diarrhea. Patient denies any fever denies any other complaints no medications taken prior travel. Related Data Home Medications ?Medication ?Instructions ?Recorded ?Confirmed metformin 500 mg tablet 500 mg PO QAM 10/15/20 01/05/22 metoprolol succinate 25 mg 25 mg PO QDAY 10/15/20 01/06/22 tablet,extended release 24 hr omeprazole 20 mg capsule,delayed 20 mg PO QDAY 10/15/20 01/05/22 release sertraline 50 mg tablet 50 mg PO QDAY 10/15/20 01/05/22 cetirizine 10 mg tablet 10 mg PO QDAY 09/13/21 01/05/22 metformin 500 mg tablet 250 mg PO HS 09/13/21 01/05/22 Previous Rx's ?Medication ?Instructions ?Recorded diphenhydramine HCl 25 mg capsule 25 mg PO Q8H PRN allergic symptoms 11/01/21 (Benadryl) #30 caps cyclobenzaprine 10 mg tablet 10 mg PO TID #14 tabs 05/17/23 cyclobenzaprine 10 mg tablet 10 mg PO TID PRN muscle spasm #30 10/29/23 tabs ondansetron 4 mg disintegrating 4 mg PO Q8H PRN nausea and 11/25/23 tablet vomiting #30 tabs ibuprofen 600 mg tablet 600 mg PO Q6H #30 tabs 06/05/24 loperamide 2 mg capsule (Imodium 2 mg PO Q6H PRN loose stool #14 06/05/24 A-D) caps metoclopramide HCl 10 mg tablet 10 mg PO Q6H PRN nausea and 06/05/24 (Reglan) vomiting #30 tabs nitrofurantoin 100 mg PO Q12H 5 days #10 caps 06/06/24 monohydrate/macrocrystals 100 mg capsule (Macrobid) Allergies Allergy/AdvReac Type Severity Reaction Status Date / Time morphine AdvReac Severe HEARTBURN, Verified 06/05/24 07:24 CHEST PAIN Review of Systems Review of Systems Narrative Review of Systems: Review of system reviewed and within normal limits except mentioned in HPI ED Exam Narrative Physical exam: VITAL SIGNS: Reviewed. GENERAL APPEARANCE: Alert and interactive, follows commands, no acute distress, HEAD AND FACE: Non-traumatic. ENT: PERRL, pink conjunctivitis, eyelid no trauma, Mucous membrane moist. NECK: Supple, nontender, no nuchal rigidity. CHEST: No tenderness, no crepitus, no paradoxical movement, no retractions. LUNGS: Clear, well ventilated, symmetric, no rales, no wheezing, no ronchi, no stridor, good breath sounds bilaterally. HEART: Regular rate, regular rhythm, no murmur, no gallops. ABDOMEN: Soft, positive bowel sounds, nondistended, no guarding, nontender, no rebound, no masses, RECTAL: Deferred. GENITAL: Deferred. NEUROLOGICAL: Gross motor function intact sensory function intact, Appropriate for age. MUSCULOSKELETAL: low back nontender, full range of motion. EXTREMITIES: Nontender, full range of motion. SKIN: Color pink, dry, no rash, no lacerations, no abrasions, no contusions. LYMPHATICS: Deferred. Course Quality Measures none Orders Category Date Time Status EKG (ED ONLY) *Do not use* NOW Care 06/07/24 07:22 Completed EKG (ED Only) Stat Exams 06/07/24 07:21 Draft XR chest 2V Stat Exams 06/07/24 08:18 Completed B-Type Natriuretic Peptide Stat Lab 06/07/24 08:50 Completed CBC Stat Lab 06/07/24 08:50 Completed Comprehensive Metabolic Panel Stat Lab 06/07/24 08:50 Completed Lipase Stat Lab 06/07/24 08:50 Completed Magnesium Stat Lab 06/07/24 08:50 Completed Partial Thromboplastin Time Stat Lab 06/07/24 08:50 Completed Prothrombin Time with INR Stat Lab 06/07/24 08:50 Completed Troponin I Stat Lab 06/07/24 08:50 Completed LORazepam [Ativan] Med 06/07/24 11:32 Discontinued 0.5 mg PO X1 ONE Vital Signs Vital signs: Vital Signs Temperature 98.2 F 06/07/24 08:05 Pulse Rate 88 06/07/24 08:05 Respiratory Rate 20 06/07/24 08:05 Blood Pressure 131/85 H 06/07/24 08:05 Pulse Oximetry (%) 97 06/07/24 08:05 Oxygen Delivery Method Room Air 06/07/24 08:05 Arrhythmia/Palpitations MDM Narrative MDM Narrative:: 33-year-old female patient with significant history of anxiety, came in for evaluation regarding palpitation. Patient woke up this morning having palpitations, lasting for several minutes. Also complained of chest discomfort. Was seen here 2 days ago and was diagnosed with UTI. Patient told me that she had no symptoms of UTI she had no dysuria frequency or bladder pain. She came in because she is having diarrhea. Patient denies any fever denies any other complaints no medications taken prior travel. Patient's workup today including cardiac workup, all came back normal. EKG also came back sinus rhythm, ventricular rate of 94 bpm, patient was given Ativan. Patient was advised to stop taking Macrobid after I reviewed the previous urinalysis which is I believe is not having UTI is a contaminated sample. Patient data External records reviewed:: None Clinical information provided by:: patient Social determinants that could affect healthcare access:: none Patient has the following chronic illnesses:: Although pt's initial presentation was concerning, Pt now reports feeling better after Ativan and has an unremarkable vital signs. Stable for D/C. Hydroxyzine given as needed How is presenting disease/condition affected by chronic disease/condition?: exacerbated by Evaluation data The following diagnostics were reviewed and interpreted by me:: lab results, radiology exam(s) and EKG tracing(s) Lab and/or radiology exams considered but not ordered:: None Interpretation Summary: EKG shows sinus rhythm, ventricular rate of 94 bpm, no ST segment elevation or depression noted. I personally reviewed and interpreted the x-ray of this patient. There is no acute abnormalities found, no infiltrates no pneumothorax no hemothorax normal chest x-ray. Review of other structures was without significant abnormal findings also. I additionally reviewed the radiologist report and agree with the interpretation. Laboratory workup including cardiac workup normal patient latest heart rate was noted to be 77 prior to discharge. None Medications / Prescriptions Medications or Prescriptions considered but not ordered:: Plan Medication administrations:: Medication Administration History Discontinued Medications Lorazepam (Lorazepam 0.5 Mg Tablet) 0.5 mg PO X1 ONE Stop: 06/07/24 11:33 Ativan Consultations Consultation(s) initiated? (list below): No Diagnosis Differential diagnosis arrhythmia/palpitations: palpitations and anxiety Most likely diagnosis given after review of the tests above:: Adverse effect of Macrobid Admission Indicated Admission indicated?: not indicated Admission Request Was there a request for admission?: No Disposition Plan Disposition Plan: Discharge Discharge Attestation Discharge Attestation: The patient and all family members were given an opportunity to ask questions and understood the discharge instructions. Discharge instructions specifically effects, indications for sooner follow up or return to the emergency department, and the expected course of current diagnosis. Patient condition: Stable Discharge Plan Plan Patient Disposition: HOME (Self Care) Disposition Comment: stable Prescriptions/Referrals Prescriptions/Med Rec: No Action metformin 500 mg Tablet 250 mg PO HS cetirizine 10 mg tablet 10 mg PO QDAY Patient Comments: TAKE 1 TABLET BY MOUTH EVERY DAY metformin 500 mg tablet 500 mg PO QAM Patient Comments: TAKE 1 TABLET BY MOUTH EVERY DAY WITH A MEAL omeprazole 20 mg capsule,delayed release(DR/EC) 20 mg PO QDAY Patient Comments: TAKE 1 CAPSULE BY MOUTH ONCE EVERY MORNING DAILY 30 MINUTES BEFORE FOR 30N DAYS metoprolol succinate 25 mg tablet extended release 24 hr 25 mg PO QDAY sertraline 50 mg tablet 50 mg PO QDAY Patient Comments: TAKE 1 TABLET BY MOUTH EVERY DAY diphenhydramine HCl [Benadryl] 25 mg capsule 25 mg PO Q8H PRN (Reason: allergic symptoms) Qty: 30 0RF Hold Instructions: Resume on 01/07/22. cyclobenzaprine 10 mg tablet 10 mg PO TID Qty: 14 0RF loperamide [Imodium A-D] 2 mg capsule 2 mg PO Q6H PRN (Reason: loose stool) Qty: 14 0RF ibuprofen 600 mg tablet 600 mg PO Q6H Qty: 30 0RF metoclopramide HCl [Reglan] 10 mg tablet 10 mg PO Q6H PRN (Reason: nausea and vomiting) Qty: 30 0RF cyclobenzaprine 10 mg tablet 10 mg PO TID PRN (Reason: muscle spasm) Qty: 30 0RF ondansetron 4 mg tablet,disintegrating 4 mg PO Q8H PRN (Reason: nausea and vomiting) Qty: 30 0RF nitrofurantoin monohyd/m-cryst [Macrobid] 100 mg capsule 100 mg PO Q12H 5 Days Qty: 10 0RF Rx Instructions: must administer with a meal/food Referrals: Stephan Eden MD [Primary Care Provider] - In 1 week Problem List Clinical Impression: Palpitation, Adverse effects of medication Patient/Caregiver Discharge Instructions Discharge Activity: activity as tolerated Education Materials: ED Palpitations Additional Instructions: Thank you for the opportunity for serving you today. You are stable for discharged . You are advised to: Follow-up with your PCP in 1 to 2 days Return to ED for worsening of symptoms Increase oral fluids Please stop taking your Macrobid Print Language: Pakistani Stand Alone Forms: [employer]ema Award Info., Patient Portal Info Letter
[2024-06-07] MEDS: LORazepam 0.5 MG TABLET PO (12:41)
[2024-06-07 12:48] VITALS: BP 135/62; PULSE 75; RESP 18; TEMP 36.9; O2SAT 99
== END 2024-06-07 12:54 | disposition home or self-care (01) ==
PROVIDERS: Nurse Practitioner Primary Care; Emergency Provider Emergency Medicine; PCP Family Medicine
DX: R00.2 Palpitations (principal); T50.905A Adverse effect of unspecified drugs, medicaments and biological substances, initial encounter; F41.9 Anxiety disorder, unspecified; R19.7 Diarrhea, unspecified
CPT/HCPCS: 36415; 71046; 80053; 83690; 83735; 83880; 84484; 85025; 85610; 85730; 93005; 99283; A9270